=== PATIENT | male | born 1950 | race Hispanic/Latino ===

== ENCOUNTER 2018-07-09 19:17 | Emergency (ER) | payer MEDICARE, BC ==
[~2018-07-09] VITALS: Ht 167.6 cm; Wt 90.7 kg
[~2018-07-09 19:17] MED LIST: FENOFIBRATE160 MG PO; LOSARTAN-HCTZ1 EAC2 PO; SEROQUEL200 MG PO
[2018-07-09] MEDS ORDERED: EZETIMIBE10 MG PO (19:27)
[2018-07-09] MEDS ORDERED: CHROMIUM PICO200 MC1 PO (19:27)
--- NOTE | 2018-07-11 12:00 | EKG ---
[facility] [address] [place] [address] Signed Normal sinus rhythm Left axis deviation Incomplete right bundle branch block Abnormal ECG When compared with ECG of 25-MAY-2017 14:26, Incomplete right bundle branch block is now present Confirmed by NATY JACKSON MD ([id number]) on 07/11/2018 11:59:19 AM Electronically Signed By: NATY JACKSON MD 07/11/18 1200 PATIENT NAME: PEÑAMADHU Electrocardiogram DATE OF : 54 PHYSICIAN: NATY JACKSON MD REPORT #: [id number] REPORT IS CONFIDENTIAL AND NOT TO BE RELEASED WITHOUT AUTHORIZATION
== END 2018-07-09 23:25 | disposition home or self-care (01) ==
LOC: ED 19:17
DX: I10 Essential (primary) hypertension (principal); F31.9 Bipolar disorder, unspecified; Z79.899 Other long term (current) drug therapy
CPT/HCPCS: 71045; 80053; 80176; 81001; 84443; 84484; 85025; 85379; 93005; 93010; 99285; G0480